=== PATIENT | male | born 1945 | race Caucasian/White ===

== ENCOUNTER 2017-10-11 18:11 | Inpatient (IN) | payer MEDICARE, SELFPAY ==
[2017-10-11 19:29] LABS: Troponin I 0.036 ng/mL (< 0.028)
[2017-10-11] MEDS ORDERED: Dexamethasone 10 MG/ML VIAL ONE (21:34)
[2017-10-11] MEDS ORDERED: Haloperidol Lactate 5 MG/ML VIAL ONE (22:06)
[2017-10-11 22:49] LABS: Troponin I 0.049 ng/mL (< 0.028)
[2017-10-11] MEDS ORDERED: Acetaminophen 650 MG Suppository PR PRN (23:02)
[2017-10-11] MEDS ORDERED: Sodium Chloride 0.9% 1,000 ML IV SCH (23:47)
[2017-10-11] MEDS ORDERED: Zoledronic Acid 4 MG in Sodium Chloride 0.9% 100 ML IVPB SCH (23:59)
[2017-10-12] MEDS: NS 0.9% w/ 40 MEQ KCL 1,000 ML IV SCH ×2 (00:12→10:06)
--- NOTE | 2017-10-12 00:43 | HP ---
PRIMARY CARE PHYSICIAN: Unknown. CHIEF COMPLAINT: Found lying down in the backyard. HISTORY OF PRESENT ILLNESS: Mr. Richard Donaldson is a 71-year-old gentleman who was transferred to [facility] from [place] [facility]. He was reportedly seen at that emergency room for 2 successive days prior to this presentation. Both times, he left against medical advice. He was found in his backyard lying down today. His neighbor called EMS. He was found to be breathin g with snoring like sound. He was, therefore, taken to the emergency room. Mr. Richard Donaldson is currently sleepy, but arousable, not providing any history. Review of systems coul d not be completed. Collateral information was obtained from discussion with the emergency room phys ician and review of medical records. While in the emergency room at [place], he developed supraventricular tachycardia. It did not r espond to adenosine. He subsequently developed atrial fibrillation and was started on a Cardizem dri p and transferred to this facility. At [place], he was also found to have a large fungating necrotic appearing mass, which appeared to originate in the oral cavity. REVIEW OF SYSTEMS: Could not be completed, the reason mentioned above. PAST MEDICAL HISTORY: Significant for epilepsy. PAST SURGICAL HISTORY: Significant for inguinal hernia repair, tonsillectomy. SOCIAL HISTORY: The patient currently uses alcohol every day. He smokes 1 pack of cigarettes a day. He does not use any recreational drugs. FAMILY HISTORY: Unable to obtain. CODE STATUS: I could not discuss his code status. His family was not reachable over the telephone. ALLERGIES: No known drug allergies. CURRENT MEDICATIONS: Unable to obtain list of his current medications. PHYSICAL EXAMINATION: GENERAL: On examination, Mr. Richard Donaldson is sleepy, but arousable, not in acute distress. He has dilcia rtorous breathing. EYES: No scleral icterus, no conjunctival pallor. ENT: He has a mass in his oral cavity. Mucosal membranes are dry. NECK: He has cervical lymphadenopathy. Trachea is deviated to the left. RESPIRATORY: Accessory muscles of breathing are mildly active. Chest wall movements are symmetric b ilaterally. LUNGS: Reveals transmitted stertorous breath sounds. CARDIOVASCULAR: S1 and S2 are heard, regular. No pericardial rub. ABDOMEN: Soft, nontender, bowel sounds are heard, no hepatomegaly, no splenomegaly. NEUROLOGIC: Full neurologic examination was not possible secondary to the patient's noncooperation. Pupils are equal and reactive to light. No facial droop. Deep tendon reflexes are 2+, plantars cathie ngoing bilaterally. MUSCULOSKELETAL: Unable to assess power in his extremities. SKIN: No rashes or subcutaneous nodules. LYMPHATIC: The patient has cervical and submandibular lymphadenopathy. PSYCHIATRIC: The patient appears relaxed. Oriented to person. Unable to assess orientation to plac e or time. LABORATORY DATA: Mr. Richard Donaldson's labs and investigations were reviewed. I reviewed his electrocard iogram, which shows atrial fibrillation. No ST changes to suggest an acute coronary syndrome. I als o reviewed his chest x-ray done at [place], which does not show any pulmonary infiltrates. He h ad a CT scan of the neck, which showed a large fungating necrotic appearing mass, which appears to or iginate in the oral cavity, associated with tongue swelling. It has central low attenuation with a d ensity within it, which suggested necrosis. Radiologist feels that it could be secondarily infected. He also had enlarged jugulodigastric nodes and submandibular adenopathy. Laboratory investigations show indeterminate troponin I of 0.049, leukocytosis with 22,100 white cell s, of which 83.6% are neutrophils, normocytic anemia with hemoglobin of 12, 5% bands, normal platelet count, INR 1.2, sodium 144, potassium 2.4, creatinine 0.52, calcium corrected for albumin elevated a t 13.3, normal AST, normal ALT, normal alkaline phosphatase, decreased albumin of 3.0, normal total b ilirubin, TSH 1.1803 on 10/10/2017. Urinalysis showed trace blood, but was otherwise unremarkable. ASSESSMENT AND PLAN: Mr. Richard Donaldson is a 71-year-old gentleman who was seen at [facility] on 10/11/2017 following transfer from [place]. His problem list includes: 1. Oral mass: He has been evaluated by ENT Service, who have recommended admission. They will foll ow up on the patient in the morning. Currently, he is maintaining good oxygen saturation. However, because of the possibility of airway compromise, he is being admitted to Critical Care Unit. 2. Hypercalcemia: We will continue fluids, will administer zoledronic acid and recheck calcium leve l. 3. Hypokalemia: We will replace potassium and recheck. 4. Indeterminate troponin I: Likely related to demand ischemia from supraventricular tachycardia/at rial fibrillation, continue to monitor. 5. Atrial fibrillation: Continue Cardizem drip. 6. History of daily alcohol use: Start ASE protocol. 7. Tobacco abuse: Start nicotine replacement therapy. 8. Likely superimposed infection on the oral mass: ENT Service recommends clindamycin, we will cont inue. LEVEL OF RISK: High. LEVEL OF COMPLEXITY: High.
--- NOTE | 2017-10-12 00:54 | PDOC.EVN ---
Event Note - Event Note Event Note: Pt reassessed. Now on 100% O2 by NRM due to hypoxia. Still having sternorous breathing. Unable to reach daughter by phone, nursing staff left voicemail. Will try to maintain SaO2 90-94% range. Unable to clarify code status at this time.
[2017-10-12] MEDS ORDERED: hydrALAZINE 20 MG/ML VIAL SLOW IVP PRN (00:58)
[2017-10-12] MEDS ORDERED: Atropine Sulfate 1 mg/10 ml Syringe ONE ×2 (01:00→01:49)
[2017-10-12] MEDS ORDERED: EPINEPHrine 1 MG/10 ML Abboject SYRINGE ONE (01:00)
[2017-10-12] MEDS ORDERED: Adenosine 6 MG/2 ML VIAL ONE (01:00)
[2017-10-12] MEDS ORDERED: Diltiazem HCl 125 MG, Admixture Fee 1 EACH in Sodium Chloride 0.9% 100 ML SLOW IVP SCH (01:00)
[2017-10-12 01:06] LABS: Troponin I 0.034 ng/mL (< 0.028)
--- NOTE | 2017-10-12 01:25 | CON ---
ER CONSULTATION DATE OF CONSULTATION: 10/11/2017 The patient seen in consultation by the ER for evaluation of airway obstruction. BRIEF HISTORY: This is a 71-year-old gentleman, who was transferred from [place] [facility] earlier this evening. Apparently, 911 has been called multiple times in the past 2 to 3 days for va rious complaints. The patient has been receiving care throughout this time. I am unsure of the even ts, which led to his transfer; however, the patient was transferred to the emergency room here and we were called to consult to evaluate a large tongue mass, it was noted on his CAT scan. Patient gives no history and is not cooperative with any questions and family members have been unable to be reach ed. PAST MEDICAL HISTORY: Unknown. PAST SURGICAL HISTORY: Unknown. SOCIAL HISTORY: Unknown. REVIEW OF SYSTEMS: Unknown. PHYSICAL EXAMINATION: GENERAL: The patient is resting in bed, obviously very cachectic and frail. HEENT: He is showing inspiratory and expiratory sturge, secondary to a large obstructing mass in the oral cavity, oropharynx, trismus to approximately 2 cm. Anterior portion of the tongue is intact an d appears that the beginning at the mid portion of the tongue encompassing the entire tongue right fl oor of the mouth and visualized portions of the soft palate appeared to be involved with a necrotic m ass most likely cancer. Pupils equally round, reactive to light and accommodation. NECK: Subtle lymphadenopathy, bilateral level 3 and 4, 1.5 cm firm nodes in the level 2 bilaterally, laryngeal landmarks are intact. No evidence of edema or involvement of the skin. Nasal cavity has severe septal deviation towards the right 4+. NEUROLOGIC: He is moving all extremities, but weak secondary to poor muscle mass. Otherwise, crania l nerves II-XII appear to be intact. PROCEDURE: After topical anesthesia and decongestant was applied to the nasal cavity and flexible la ryngoscopy was performed. The anterior nasal cavity is clear. The nasopharynx is clear, beginning i n the right nasopharynx extending into the entire anterior oropharynx is obstructed secondary to a ve ry large oropharyngeal mass, this is impinging towards an almost touching the posterior pharyngeal wa ll, multiple secretions in this area. The entire vallecula and right lateral pharyngeal wall and lef t lateral pharyngeal wall are involved with this mass as well. The epiglottis is intact. The bilate ral true vocal cords are intact and the visualized portions of the subglottic airway appeared to be i ntact and all appears this mass is involving nearly all of the oropharyngeal tongue, lateral pharynge al wall, and the majority of the oral cavity tongue. The patient's airway is intact at the level of the larynx; however, at the level of the oropharynx, the airway is compromised. The patient is cora ating his secretions fairly. 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 This mass was causing significant dysphagia and upper airway obstruction. At the current moment, the patient i s refusing any medical care or any surgical treatment. PLAN: I discussed with the patient the importance of direct laryngoscopy with a wide tracheostomy to help alleviate his upper airway symptoms. At this time, the patient is adamantly refusing and is at tempting to leave the hospital if any further measures were taken. I discussed with the emergency room physician as well as the mill house supervisor Mr. Bev Garcia, we nav l give him 20 mg of Decadron to help stabilize some of the swelling and hopefully reduced a little bi t of the mass effect of the oropharyngeal mass. We will continue efforts to reach out the family mem bers will also put in an urgent ethics consult first thing in the morning, otherwise he will be obser mita in the ICU under the care of the [facility], should there be an acute airway situati on until further evaluation can be made. We will consider this patient as a FULL CODE, will be avail able for emergent tracheotomy if needed.
[2017-10-12] MEDS ORDERED: Oxymetazoline HCl 0.05% ( 15 ML ) ONE (01:50)
[2017-10-12] MEDS ORDERED: Benzocaine 20% Spray 60 ML CAN ONE (01:50)
[2017-10-12] MEDS ORDERED: Lidocaine 2% Jelly 5 ML TUBE ONE (01:50)
[2017-10-12 03:11] LABS: Oxyhemoglobin 97.7 % (94.0-97.0); Sodium 141 mmol/L (135-148)
[2017-10-12 03:21] LABS: Mechanical Tidal Volume 400 ml; Mode SIMV; Pressure Support 10 cmH2O; Vent YES
[2017-10-12 04:01] LABS: BUN (Urea Nitrogen) 12 mg/dL (8.4-25.7); Calc. Creatinine Clearance 58 mL/min (70-130); Estimated GFR-MDRD Greater than 90
--- NOTE | 2017-10-12 04:11 | PDOC.EVN ---
Event Note - Event Note Event Note: Event note for description of CODE. Code initiated with obstruction of airway and subsequent asystole. When I arrived, code was in progress. Epinephrine had been given x1. Dr. Helton, ENT was at bedside. Bag mask ventilation had not been successful. Shortly after I had arrived nasal intubation was abandoned for a surgical airway. Etiology was thought to be primarily airway related and chest compressions could not be performed during surgical airway placement. chest compressions were started immediately after establishing airway. epinephrine was given again. After one round of chest compressions were done, pulse check was performed and patient was found to have strong pulse. ventilation continued and patient shortly developed SVT. 2 rounds of adensosine were given without improvement. ECG confirmed SVT. Blood pressured decreased and patient had synchronized cardioversion. Gradually HR decreased to 120s and digoxin was initiated for increased rate control without lowering BP. Patient was transitioned to ventilator and code was completed. <Thierry Erwin - Last Filed: 10/12/17 03:51> Attending Addendum - Attending Addendum I was present for the manning portions of the resuscitation and discussed the management with Dr. Erwin. I agree with the History, Examination, Assessment and Plan documented above with any addition or exceptions noted below. [facility] <Omar Goodman - Last Filed: 10/13/17 01:29>
[2017-10-12 04:12] LABS: Anion Gap 16 mmol/L (10-20); Carbon Dioxide 34 mmol/L (23-31); Chloride 98 mmol/L (98-107)
[2017-10-12 04:13] LABS: Calcium 12.1 mg/dL (7.8-10.44)
[2017-10-12 04:53] LABS: Band 13 % (5-11); Hematocrit 39.8 % (42.0-52.0); Macrocytosis SLIGHT = 6-15 cells (100X) (0-5/hpf); Mean Platelet Volume 8.1 fL (7.4-10.4); Neutrophil 75 % (42-75); Red Blood Cell (RBC) Count 3.95 mill/uL (4.70-6.10)
--- NOTE | 2017-10-12 05:17 | OP ---
DATE OF CONSULTATION/OPERATION: 10/12/2017 BRIEF HISTORY: This is a 71-year-old gentleman seen by me previously in the day with upper airway ob struction secondary to a large malignancy involving the entire oropharyngeal tongue. At that time he was maintaining vital signs and was uncooperative with proceeding forward with any more secure airwa y. I was called by the CCU for a code as the patient was in severe bradycardia. Oxygen saturations were 91%. I arrived at the bedside and the patient was undergoing code protocol. Oxygen saturations were 91% by a bag mask. The flexible laryngoscope was in the room with a 7.5 endotracheal tube. Na evangelist tracheal intubation was attempted. There was a large tumor mass obstructing the entire oropharyn x from the level of the nasopharynx down to the hypopharynx. Multiple secretions were present and ma de visualization of the airway very difficult. It appeared the bulk of the oropharyngeal tumor had c ollapsed the epiglottis and using the flexible laryngoscope the epiglottis was unable to be mobilized and the airway was unable to be cannulated. The patient was asystolic at this point, therefore the decision for emergent tracheotomy was made. A vertical incision with an 11 blade was made and above the trachea, blunt dissection in the midline allowed for identification of the tracheal ring. A cricotrach was then placed in the crico cartilage and elevated superiorly, elevating the trachea. A vertical incision into the trachea was then made and a 7.5 endotracheal tube was immediately placed. The cuff was inflated. Positive breath sounds w ere present bilaterally and the patient underwent a code by the medical team. The patient was resusc itated, vital signs were restored. A this point a small amount of oozing was suture ligated with a 3 -0 silk stitch. The endotracheal tube was then removed over a bougie catheter and a #8 cuffed Shiley trach was then placed into the trachea under direct visualization. Following this a 5 point auscult ation was obtained confirming bilateral breath sounds. The trach was then secured with a 2-[address] itch and a trach collar was placed. The patient then resumed any needed resuscitation efforts. The patient tolerated the procedure well.
[2017-10-12] MEDS: Potassium Chloride 40 MEQ in Sodium Chloride 0.9% 250 ML 250 ML IVPB SCH ×2 (05:35→10:05)
[2017-10-12] MEDS: Clindamycin/D5W 900 MG in Premix Bag 1 BAG IVPB SCH ×3 (05:43→20:54)
[2017-10-12] MEDS ORDERED: Nicotine 21 MG PATCH TD SCH (09:00)
[2017-10-12] MEDS ORDERED: Potassium Phosphate 15 MMOL in Sodium Chloride 0.9% 250 ML 250 ML IVPB SCH (09:15)
[2017-10-12] MEDS ORDERED: Magnesium Sulfate 4 GM in Sodium Chloride 0.9% 250 ML 250 ML IVPB SCH (09:15)
[2017-10-12] MEDS ORDERED: Sedation Protocol FS ONE (09:17)
[2017-10-12] MEDS ORDERED: Lacri-Lube Opth Oint 3.5 GM TUBE EA EYE PRN (09:17)
--- NOTE | 2017-10-12 09:26 | CON ---
DATE OF CONSULTATION: 10/12/2017 SERVICE: Pulmonary Medicine. REASON FOR CONSULTATION: Respiratory failure. HISTORY OF PRESENT ILLNESS: The patient is a 71-year-old white male. He has a past medical history significant for multiple presentations to the emergency department for difficulty breathing. He did leave against medical advice without being fully evaluated. Ultimately, he was found face down in his yard. He was not responsive. EMS services were called by neighbors. He was brought to the emergency department. An endotracheal tube cannot be established because of an airway mass. As such, tracheostomy was performed at bedside. The patient is breathing comfortably, but unfortunately has likely suffered an anoxic brain injury. He never required any specific chest compressions so far as I am aware. PAST MEDICAL HISTORY: Epilepsy. PAST SURGICAL HISTORY: 1. Inguinal hernia repair. 2. Tonsillectomy. 3. Tracheostomy. SOCIAL HISTORY: He uses alcohol on a daily basis. He smokes 1 pack of cigarettes on a daily basis. He apparently did not use any recreational drugs previously. FAMILY HISTORY: Unknown. ALLERGIES: No known drug allergies. MEDICATIONS: List of his inpatient medications was reviewed. Multiple updates were made. REVIEW OF SYSTEMS: This could not be obtained as patient is currently encephalopathic. PHYSICAL EXAMINATION: VITAL SIGNS: Afebrile, pulse 75, blood pressure 114/41, respirations 20, saturation 100% on 23% FiO2 and a PEEP of 5. HEENT: Normocephalic, atraumatic. Sclerae are white, conjunctivae pink. NECK: Trachea is deviated. He has a tracheostomy in place. LUNGS: Decent air entry. There is a slightly prolonged expiratory phase. I do not appreciate wheezing, rhonchi or crackles. HEART: Normal rate and regular. ABDOMEN: Soft. Scaphoid. Bowel sounds are present. MUSCULOSKELETAL: No cyanosis or clubbing. There is no pitting in the bilateral lower extremities. NEUROLOGIC: Grossly nonfocal. LABORATORY DATA: WBC 28.0, hemoglobin 11.8, platelets 358,000. Band count is 13%. A pH 7.36, pCO2 57, and pO2 403. This was on 100% FiO2 at this time. Potassium 2.6. Basic metabolic profile is otherwise unremarkable. Troponin is down trending to 0.034. Calcium was previously elevated. IMAGIN. CT of the neck demonstrates a large fungating necrotic appearing mass originating from the oral cavity associated with tongue swelling. Bilateral enlarged lymph nodes are present. 2. Chest x-ray demonstrates hyperexpanded lung guerra with flattening of bilateral diaphragm. Normal cardiomediastinal silhouette. Trachea is fairly midline. Some minimal cephalization is present. There is no acute cardiopulmonary abnormality otherwise. ASSESSMENT: 1. Anoxic brain injury. 2. Metabolic encephalopathy, suspected. 3. Oropharyngeal mass. 4. Chronic obstructive pulmonary disease without current exacerbation. 5. History of seizure disorder. PLAN: We will support the patient on mechanical ventilation. Antibiotics empirically will be initiated. My suspicion, however, is that the white blood cell count is more closely associated with stress reaction. We will await the results of some of these cultures. We will rapidly deescalating antibiotics if necessary. Multiple adjustments have been made to the ventilator to determine more work of breathing over to the patient. His lungs remained extraordinarily compliant. Potassium will be replaced today. Palliative care consultation will be obtained. Magnesium and phosphorus will be checked and replaced if necessary. Critical care time: 30 minutes. [facility]
[2017-10-12] MEDS ORDERED: Fentanyl 20 MCG/ML 250 ML IVPB SCH (09:29)
[2017-10-12] MEDS ORDERED: Propofol 1,000 MG/100 ML VIAL IV PRN (09:29)
[2017-10-12] MEDS ORDERED: Lorazepam 2 MG/ML VIAL SLOW IVP PRN (09:29)
[2017-10-12] MEDS ORDERED: Morphine PF 1 MG/ML SYR IVP PRN (09:37)
[2017-10-12] MEDS: Sodium Chloride 0.45% 1,000 ML IV SCH ×2 (10:05→20:55)
--- NOTE | 2017-10-12 12:10 | PDOC.PN ---
- Subjective Encounter Start Date: 10/12/17 Encounter Start Time: 10:45 -: non-verbal, old records requested/rev Pt seen and examined, chart reviewed in its entirety, this is my first visit with this patient. Pt admitted overnight with FTT, laryngeal mass and difficulty swallowing and breathing. Intubated and then taken earleir this morning for trach by Dr Helton. pt found down, off sedation and unresponsive. No acute events overnigh,t no F/C PT admitted with Afib with RVR, started on cardizem gtt, now off, rate controlled still in afib. unable to get ROS due to MS - Objective MAR Reviewed: Yes Vital Signs & Weight: Vital Signs (12 hours) Temp Pulse Resp Pulse Ox 10/12/17 11:00 97.5 F L 10/12/17 10:00 12 10/12/17 08:00 97.4 F L 75 19 100 10/12/17 07:00 97.6 F 10/12/17 06:00 20 10/12/17 04:00 20 99 10/12/17 02:44 102 H 10/12/17 02:20 20 Weight Weight 86 lb 3.212 oz Most Recent Monitor Data Heart Rate from ECG 70 NIBP 120/39 NIBP BP-Mean 64 Respiration from ECG 23 SpO2 97 I&O: 10/11/17 10/12/17 10/13/17 06:59 06:59 06:59 Intake Total 600 Output Total 237 165 Balance 363 -165 Result Diagrams: 10/12/17 02:04 10/12/17 02:04 Radiology Reviewed by me: Yes EKG Reviewed by me: Yes Phys Exam - Physical Examination comfortable, not aorusable, trached on Vent, SIMV, cachectic HEENT: moist MMs, sclera anicteric, oral pharynx no lesions Neck: no nodes, no JVD, supple Respiratory: no wheezing, no rales, no rhonchi, clear to auscultation bilateral Cardiovascular: no significant murmur, no rub, irregular Gastrointestinal: soft, non-tender, no distention, positive bowel sounds Musculoskeletal: no edema, pulses present not testable due to MS Lymphatic: no nodes Deviation from normal: sedate, nonresponsive Skin: no rash, normal turgor, cap refill <2 seconds Dx/Plan (1) Pharyngeal carcinoma Code(s): C14.0 - MALIGNANT NEOPLASM OF PHARYNX, UNSPECIFIED Status: Acute (2) Acute respiratory failure with hypoxia Code(s): J96.01 - ACUTE RESPIRATORY FAILURE WITH HYPOXIA Status: Acute (3) Dysphagia Code(s): R13.10 - DYSPHAGIA, UNSPECIFIED Status: Acute (4) Metabolic encephalopathy Code(s): G93.41 - METABOLIC ENCEPHALOPATHY Status: Acute (5) Atrial fibrillation with rapid ventricular response Code(s): I48.91 - UNSPECIFIED ATRIAL FIBRILLATION Status: Acute - Plan cont current plan of care, PT/OT, manager social media, respiratory therapy * . p[t is trached, on Vent, off sedation and minimally repsonsive. May be futile care, and per Pulmonary, this may not be what this patient wanted. Will attempt to contact any fmaily. may need to get EEG.Neuro involvement. ? need for ethics committee evaluation
[2017-10-12 16:09] VITALS: BP 115/41
--- NOTE | 2017-10-12 18:24 | EKG ---
Test Reason : STAT Blood Pressure : / mmHG Vent. Rate : 178 BPM Atrial Rate : 178 BPM P-R Int : 000 ms QRS Dur : 090 ms QT Int : 264 ms P-R-T Axes : 000 005 238 degrees QTc Int : 454 ms Supraventricular tachycardia Left ventricular hypertrophy with repolarization abnormality Abnormal ECG When compared with ECG of 21-APR-1997 12:58, Vent. rate has increased BY [address] now depressed in Inferior leads ST now depressed in Anterolateral leads Nonspecific T wave abnormality, worse in Inferior leads T wave inversion now evident in Anterolateral leads Confirmed by JUAN ANTONIO DEWEY ([id number]) on 10/12/2017 6:24:43 PM Referred By: MIREYA Confirmed By:JUAN ANTONIO DEWEY
[2017-10-12] MEDS ORDERED: Morphine 2 mg/2ml in 0.9% NaCl PF SYRINGE IVP PRN (23:27)
[2017-10-13 04:45] LABS: #Lymphocytes 1.2 thou/uL (1.20-3.40); #Monocytes 3.1 thou/uL (0.11-0.59); #Neutrophils 24.2 thou/uL (1.40-6.50); %Basophils 0.1 % (0.0-1.0); %Eosinophils 0.1 % (0.0-10.0); %Lymphocytes 4.1 % (21.0-51.0); %Monocytes 10.9 % (0.0-10.0); Hematocrit 33.5 % (42.0-52.0); Mean Platelet Volume 8.6 fL (7.4-10.4); Red Blood Cell (RBC) Count 3.53 mill/uL (4.70-6.10); White Blood Cell (WBC) Count 28.5 thou/uL (4.8-10.8)
--- NOTE | 2017-10-13 04:47 | PRG ---
DATE OF SERVICE: 10/13/2017 SERVICE: Pulmonary Medicine. INTERVAL HISTORY: The patient is doing fine from a respiratory standpoint. He is breathing very comfortably this morning. He is actually following all commands. He is moving all 4 extremities. He has no specific complaints of nausea, vomiting, or chest discomfort. PHYSICAL EXAMINATION: VITAL SIGNS: Afebrile, pulse 82, blood pressure 107/40, respirations 10, saturation 96% on 21% FiO2 and a PEEP of 5. GENERAL: The patient is awake and alert, in no apparent distress. He is following all commands. HEENT: Normocephalic, atraumatic. Sclerae are white, conjunctivae pink. Oral and nasal mucosa is moist without lesions. LUNGS: Decent air entry. There is a slightly prolongation of the expiratory phase, but I do not appreciate much in the ways of wheezing, crackles or rhonchi. HEART: Normal rate, regular. ABDOMEN: Soft, nontender, nondistended. Bowel sounds positive. MUSCULOSKELETAL: No cyanosis or clubbing. No pitting in the bilateral lower extremities. GENITOURINARY: Mcdaniel catheter in place. NEUROLOGIC: Grossly nonfocal. LABORATORY DATA: Potassium is improved at 3.6. ASSESSMENT: 1. Metabolic encephalopathy, resolved. 2. Oropharyngeal mass. 3. Chronic obstructive pulmonary disease without current exacerbation. 4. History of seizure disorder. PLAN: The patient will be placed on T-collar. As the day goes on, we are going to have to discuss with the patient really what he would like to do moving forward. His options are to pursue aggressive therapy for this cancer, or transition over to comfort care only, which I believe may be in keeping with what he previously wanted. Palliative Care will be invited to come by to discuss how to move forward with the patient. We will put him on a CPAP trial. If he meets criteria, we will transition him over to a T-collar. Pulmonary Critical Care will continue to follow. CRITICAL CARE TIME: 30 minutes. MTDD
[2017-10-13 05:22] LABS: Anion Gap 10 mmol/L (10-20); BUN (Urea Nitrogen) 29 mg/dL (8.4-25.7); Calc. Creatinine Clearance 55 mL/min (70-130); Calcium 10.5 mg/dL (7.8-10.44); Carbon Dioxide 31 mmol/L (23-31); Chloride 103 mmol/L (98-107); Estimated GFR-MDRD Greater than 90; Phosphorus 2.7 mg/dL (2.3-4.7)
[2017-10-13] MEDS ORDERED: Potassium Chloride 40 MEQ in Sodium Chloride 0.9% 250 ML 250 ML IVPB SCH ×4 (06:00)
[2017-10-13] MEDS: Clindamycin/D5W 900 MG in Premix Bag 1 BAG IVPB SCH ×3 (06:10→20:49)
[2017-10-13] MEDS ORDERED: FLU VACC TS2017-18 (>65YR) 0.5 ML SYRINGE IM ONE (09:00)
[2017-10-13] MEDS: Sodium Chloride 0.45% 1,000 ML IV SCH ×2 (10:18→15:11)
--- NOTE | 2017-10-13 11:13 | PQF ---
CLINICAL DOCUMENTATION IMPROVEMENT CLARIFICATION FORM: ICD-10 Updated PLEASE DO AN ADDENDUM TO THE PROGRESS NOTE WITH ANY DOCUMENTATION UPDATES OR ADDITIONS AND CARRY THROUGH TO DC SUMMARY. THANK YOU. Date: 10/13/17 ATTN: DR. STAPLES Please exercise your independent, professional judgment in responding to the clarification form. Clinical indicators are provided on the bottom of this form for your review Please check appropriate box(s): [ ] Protein Calorie Malnutrition: [ ] Mild [ ] Moderate [ ] Severe [ ] Other Malnutrition (please specify) __ [ ] Underweight without malnutrition [ ] Cachexia [ ] Other diagnosis [ ] Unable to determine In addition, please specify: Present on Admission (POA): [ ] Yes [ ] No [ ] Unable to determine CLINICAL INDICATORS - SIGNS / SYMPTOMS / LABS DIETARY NOTE: "SEVERE GENERALIZED MUSCLE WASTING OBSERVED, LITTLE VISCERAL FAT PRESENT, WOUND PRESENT BMI 15.3 RISKS: ANOXIC BRAIN INJURY OROPHARYNGEAL MALIGNANCY TREATMENT: DIETARY CONSULT TUBE FEEDS (This form is maintained as a part of the permanent medical record) 2014 [employer] All Rights Reserved MONIK [email or web address] Office: [phone] ADDRESSED IN PN DATES 10/13/2017 ROMÁN
--- NOTE | 2017-10-13 13:26 | PDOC.PN ---
- Subjective Encounter Start Date: 10/13/17 Encounter Start Time: 09:40 -: old records requested/rev Pt seen and examined earlier on rounds. PT awake and off vent. Doesnt want any more interventions. DNR/DNI. Pulled DFT, refuses replacement. ST will be ordere,though pt wont follow after discharge. No F/C,no N/V/D/C,no CP or sOB - Objective Resuscitation Status: Resuscitation Status DNR:Do Not Resuscitate MAR Reviewed: Yes Vital Signs & Weight: Vital Signs (12 hours) Temp Pulse Resp Pulse Ox 10/13/17 13:18 79 20 99 10/13/17 11:00 98.4 F 10/13/17 07:21 98.9 F 83 22 H 95 10/13/17 07:00 98.9 F 10/13/17 06:33 98 10/13/17 06:31 93 18 98 10/13/17 04:45 91 L 10/13/17 04:00 98.6 F 98 10/13/17 02:16 82 10/13/17 02:00 12 Weight Admit Weight 86 lb Weight 94 lb 12.78 oz Most Recent Monitor Data Heart Rate from ECG 67 NIBP 144/51 NIBP BP-Mean 93 Respiration from ECG 26 SpO2 100 I&O: 10/12/17 10/13/17 10/14/17 06:59 06:59 06:59 Intake Total 600 3363 305 Output Total 237 1090 30 Balance 363 2273 275 Result Diagrams: 10/13/17 03:21 10/13/17 03:21 Radiology Reviewed by me: Yes EKG Reviewed by me: Yes Phys Exam - Physical Examination Constitutional: NAD cachectic HEENT: PERRLA, moist MMs, sclera anicteric, oral pharynx no lesions Neck: no nodes, no JVD, supple, full ROM trach stie c/d/i Respiratory: no wheezing, no rhonchi, clear to auscultation bilateral Cardiovascular: no significant murmur, no rub, irregular Gastrointestinal: soft, non-tender, no distention, positive bowel sounds Musculoskeletal: no edema, pulses present Neurological: non-focal, normal sensation, moves all 4 limbs Lymphatic: no nodes Psychiatric: normal affect, A&O x 3 Skin: no rash, normal turgor, cap refill <2 seconds Dx/Plan (1) Pharyngeal carcinoma Code(s): 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 no further plans at present (2) Acute respiratory failure with hypoxia Code(s): J96.01 - ACUTE RESPIRATORY FAILURE WITH HYPOXIA Status: Resolved Comment: trached, off vent. DNR/DNI (3) Dysphagia Code(s): R13.10 - DYSPHAGIA, UNSPECIFIED Status: Acute Qualifiers: Dysphagia type: pharyngeal phase Qualified Code(s): R13.13 - Dysphagia, pharyngeal phase Comment: due to mass. ST eval (4) Metabolic encephalopathy Code(s): G93.41 - METABOLIC ENCEPHALOPATHY Status: Resolved Comment: awake, alert, appropriate (5) Atrial fibrillation with rapid ventricular response Code(s): I48.91 - UNSPECIFIED ATRIAL FIBRILLATION Status: Acute Comment: paroixysmal, rate controlled, on po meds - Plan * .
[2017-10-14 04:50] LABS: #Eosinphils 0.1 thou/uL (0.0-0.7); #Lymphocytes 1.2 thou/uL (1.20-3.40); #Monocytes 2.4 thou/uL (0.11-0.59); #Neutrophils 21.5 thou/uL (1.40-6.50); %Basophils 0.1 % (0.0-1.0); %Eosinophils 0.2 % (0.0-10.0); %Lymphocytes 4.9 % (21.0-51.0); %Monocytes 9.5 % (0.0-10.0); Hematocrit 40.1 % (42.0-52.0); Mean Platelet Volume 8.2 fL (7.4-10.4); Red Blood Cell (RBC) Count 4.15 mill/uL (4.70-6.10); White Blood Cell (WBC) Count 25.3 thou/uL (4.8-10.8)
[2017-10-14 05:02] LABS: Anion Gap 12 mmol/L (10-20); BUN (Urea Nitrogen) 28 mg/dL (8.4-25.7); Calc. Creatinine Clearance 71 mL/min (70-130); Carbon Dioxide 26 mmol/L (23-31); Chloride 107 mmol/L (98-107); Estimated GFR-MDRD Greater than 90
[2017-10-14] MEDS: Sodium Chloride 0.45% 1,000 ML IV SCH ×2 (05:40→07:31)
[2017-10-14] MEDS: Clindamycin/D5W 900 MG in Premix Bag 1 BAG IVPB SCH (05:40)
[2017-10-14 08:03] VITALS: TEMP 99.7
[2017-10-14] MEDS ORDERED: Amoxicillin/Potassium Clav 875 MG TAB PO SCH (09:00)
--- NOTE | 2017-10-14 10:36 | PQF ---
[employer] Crystal Reports Winform ViewerMELISA ,OSCAR GUERRA [id number] CLINICAL DOCUMENTATION IMPROVEMENT CLARIFICATION FORM: ICD-10 Updated PLEASE DO AN ADDENDUM TO THE PROGRESS NOTE WITH ANY DOCUMENTATION UPDATES OR ADDITIONS AND CARRY THROUGH TO DC SUMMARY. THANK YOU. Date: 10/14/17 ATTN: DR. STAPLES Please exercise your independent, professional judgment in responding to the clarification form. Clinical indicators are provided on the bottom of this form for your review Please check appropriate box(s): [ x ] Protein Calorie Malnutrition: [ ] Mild [ ] Moderate [ x ] Severe [ ] Other Malnutrition (please specify) __ [ ] Underweight without malnutrition [ ] Cachexia [ ] Other diagnosis [ ] Unable to determine In addition, please specify: Present on Admission (POA): [ x ] Yes [ ] No [ ] Unable to determine CLINICAL INDICATORS - SIGNS / SYMPTOMS / LABS DIETARY NOTE: "SEVERE GENERALIZED MUSCLE WASTING OBSERVED, LITTLE VISCERAL FAT PRESENT, WOUND PRESENT BMI 15.3 RISKS: ANOXIC BRAIN INJURY OROPHARYNGEAL MALIGNANCY TREATMENT: DIETARY CONSULT TUBE FEEDS (This form is maintained as a part of the permanent medical record) 2014 [place], [employer]. All Rights Reserved [email or web address] Office: [phone] [facility]
[2017-10-14 11:44] VITALS: BMI 15.3
--- NOTE | 2017-10-14 17:24 | PRG ---
DATE OF SERVICE: 10/14/2017 SERVICE: Pulmonary Medicine. INTERVAL HISTORY: The patient is doing great from a respiratory standpoint. He is breathing comfortably. He is demonstrating improving strength. Otherwise , there has been no interval change to his condition. He has decided that he would not like to pursue any diagnostic or therapeutic procedures. As such, we talked to him about transition over comfort care only, which he seems amenable to. PHYSICAL EXAMINATION: VITAL SIGNS: Afebrile with a T-max of 99.7. Pulse 86, blood pressure 160/61, respirations 20, saturation 95% on room air. GENERAL: Patient is awake and alert, no apparent distress. LUNGS: Decent air entry. There is a slightly prolonged expiratory phase, but no wheezing, rhonchi, or crackles are appreciated. HEART: Normal rate, regular. ABDOMEN: Soft, nontender, nondistended. Bowel sounds positive. MUSCULOSKELETAL: No cyanosis or clubbing. No pitting in the bilateral lower extremities. NEUROLOGIC: Grossly nonfocal. LABORATORY DATA: WBC is 25.3, hemoglobin 12.4, platelets 256,000. Sodium 141. Potassium 3.5. Basic metabolic profile is otherwise unremarkable. ASSESSMENT: 1. Metabolic encephalopathy, resolved. 2. Oropharyngeal mass. 3. Chronic obstructive pulmonary disease without current exacerbation. 4. History of seizure disorder. PLAN: The patient is doing fine from a respiratory perspective. He has decided to transition over to comfort care only and go home with hospice. Given his previous responses to the medical community (leaving against medical advice) during previous presentations to the Emergency Department, I do feel that passing away with his current medical conditions is in keeping with his values. As such, whenever things are set up at home with hospice, this transition will be arranged. Pulmonary will continue to follow while he remains in this location. ROMÁN
== END 2017-10-14 14:17 | disposition hospice, home (50) | DRG 11 ==
LOC: ERS 18:11 → CCU 22:00
PROVIDERS: ADMIT Internal Medicine; ATTEND Internal Medicine
PROC: 0CJS8ZZ Inspection of Larynx, Via Natural or Artificial Opening Endoscopic (ICD-10-PCS; 2017-10-11)
PROC: 0B110F4 Bypass Trachea to Cutaneous with Tracheostomy Device, Open Approach (ICD-10-PCS; principal; 2017-10-12)
PROC: 5A1935Z Respiratory Ventilation, Less than 24 Consecutive Hours (ICD-10-PCS; 2017-10-12)
PROC: 5A12012 Performance of Cardiac Output, Single, Manual (ICD-10-PCS; 2017-10-12)
PROC: 5A2204Z Restoration of Cardiac Rhythm, Single (ICD-10-PCS; 2017-10-12)
DX: C10.8 Malignant neoplasm of overlapping sites of oropharynx (principal); G93.41 Metabolic encephalopathy; J96.01 Acute respiratory failure with hypoxia; I46.9 Cardiac arrest, cause unspecified; E43 Unspecified severe protein-calorie malnutrition; G93.1 Anoxic brain damage, not elsewhere classified; C77.0 Secondary and unspecified malignant neoplasm of lymph nodes of head, face and neck; I24.8 Other forms of acute ischemic heart disease; R64 Cachexia; Z68.1 Body mass index [BMI] 19.9 or less, adult; I48.0 Paroxysmal atrial fibrillation; K72.90 Hepatic failure, unspecified without coma; E83.52 Hypercalcemia; I48.2 Chronic atrial fibrillation; E87.6 Hypokalemia; F17.210 Nicotine dependence, cigarettes, uncomplicated; F10.10 Alcohol abuse, uncomplicated; J44.9 Chronic obstructive pulmonary disease, unspecified; Z51.5 Encounter for palliative care; G40.909 Epilepsy, unspecified, not intractable, without status epilepticus; R59.0 Localized enlarged lymph nodes; Z66 Do not resuscitate; R13.13 Dysphagia, pharyngeal phase
CPT/HCPCS: 36415; 80048; 82805; 83735; 84100; 84484; 85025; 92950; 93005; 93010; 94002; 94003; 94640; 94760; 96361; 96365; 96366; 96374; 96375; A4216; J0153; J0171; J0461; J1100; J1630; J3475; J3480; J3489; J3490; J7050; J7620